=== PATIENT | female | born 1995 | race Asian ===

== ENCOUNTER 2021-05-01 09:24 | Emergency (ER) | payer OTHER, SELFPAY ==
[2021-05-01 09:25] VITALS: BP 117/69; PULSE 105; RESP 16; TEMP 36.7; O2SAT 99
--- NOTE | 2021-05-01 09:39 | ED_ITS ---
HPI - Skin/Abscess/Foreign Bdy General Chief complaint: Skin/Abscess/Foreign Body Stated complaint: Staph infection back after antibiotics Time Seen by Provider: 05/01/21 09:34 Source: patient Mode of arrival: Ambulatory Limitations: no limitations History of Present Illness HPI narrative: The patient is a 25-year-old female who presents with in left axilla region. It has been for about 2-4 weeks. She says about 2 to have years ago she did have a staph infection in was cleared with clindamycin. She has not had any issue until recently. It again presented eye she initially was started on Bactrim she said the 1st 3 days of Bactrim cleared however came back on day 4 and was no longer responding at which point she was switched to clindamycin. She finished a 10 day course of clindamycin her last day was 4 days ago she had some weeping up the area and had a culture taken 3 days ago, which I do not have access to. She was told to start antifungal low Motrin cream she put that on last night and this morning she said it has come back with a vengeance. Significantly more red itchy it is weeping draining she says that she woke up with her sheets wet. She has not had fever chills or rigors. She did get a small cold in the middle of this she had 3- COVID test. She no longer has any upper respiratory symptoms. He says it is uncomfortable. No significant swelling. sHe actually has infectious disease appointment in 4 days. Related Data Home Medications Medication Instructions Recorded Confirmed No Known Home Medications 05/01/21 05/01/21 Allergies Allergy/AdvReac Type Severity Reaction Status Date / Time Penicillins Allergy Unknown Verified 05/01/21 09:37 Review of Systems Review of Systems Narrative: GENERAL: Denies chills, fatigue, malaise, fever, sweats, travel HEENT: Denies sinus pain, ear pain, sore throat, difficulty swallowing, neck pain RESPIRATORY: Denies dyspnea, cough, wheezing, hemoptysis, sputum. CARDIOVASCULAR: Denies chest pain, palpitations, orthopnea, edema GASTROINTESTINAL: Denies nausea, vomiting, abdominal pain, diarrhea, constipation, melena. : Denies dysuria, frequency, incontinence, hematuria, urinary retention, flank pain. MUSCULOSKELETAL: Denies weakness, joint pain, or bony pain SKIN: See HPI NEUROLOGIC: Denies weakness, dizziness, headache, numbness, change in speech, confusion PSYCHIATRIC: No concerning psychosocial issues. 12 point review of systems is negative except for those stated above and HPI Patient History Medical History Staph infection Social History Smoking Status: Never smoker Smoking Status: Never smoker alcohol intake frequency: 0-2 drinks per day Substance Use Type: does not use Exam Initial Vital Signs Initial Vital Signs: Vital Signs Temperature 98.1 F 05/01/21 09:25 Pulse Rate 105 H 05/01/21 09:25 Respiratory Rate 16 05/01/21 09:25 Blood Pressure 117/69 05/01/21 09:25 Pulse Oximetry 99 05/01/21 09:25 GENERAL: Well-appearing, well-nourished and in no acute distress. CARDIOVASCULAR: peripheral pulses in tact, cap refill <2 sec RESPIRATORY: No respiratory distress, speaks in full sentences without difficulty EXTREMITIES: Normal range of motion, no clubbing or edema. Neurovascularly intact NEUROLOGICAL: Cranial nerves II through XII grossly intact. Normal gait and speech. SKIN: Left axilla erythematous no fluctuation, not blanchable obvious weeping and drainage culture is again taken the are some small cracks some of it is crusted over around the edges Course Orders Ordered: ED Orders 05/01/21 10:05 CBC Auto Diff [Complete Blood Count AUTO DIFF] Stat CMP [Comprehensive Metabolic Panel] Stat CRP [C-Reactive Protein Quant] Stat ESR [Erythrocyte Sedimentation Rate] Stat Lactate (Lactic Acid) Stat Procalcitonin Stat 05/01/21 10:20 Wound Culture and Gram Stain Stat 05/01/21 10:49 Blood Culture Stat Discontinued Medications Methylprednisolone (Methylprednisolone 125 Mg/2 Ml Vial) 125 mg IV NOW ONE Stop: 05/01/21 11:06 Last Admin: 05/01/21 11:45 Dose: Not Given Documented by: AYANA Vital Signs Vital signs: Vital Signs - 8 hr 05/01/21 10:57 05/01/21 12:14 Pulse Rate 78 84 Respiratory Rate 16 18 Blood Pressure 118/78 105/64 Pulse Oximetry 99 100 MDM - Skin/Abscess/Foreign Bdy Lab Data Result diagrams: 05/01/21 10:05 05/01/21 10:05 Labs: Lab Results 05/01/21 05/01/21 05/01/21 Range/Units 10:05 10:05 10:05 WBC 11.7 H (4.5-11.0) X10^3/uL RBC 4.54 (4.0-5.2) X10^6/uL Hgb 13.9 (12.0-16.0) g/dL Hct 41.1 (36-46) % MCV 90.4 (80-100) fL MCH 30.7 (26-34) PG MCHC 34.0 (30-36) % RDW 12.8 (11.6-14.8) % Plt Count 351 (150-400) X10^3/uL Neut % (Auto) 85.6 H (50-75) % Lymph % (Auto) 9.1 L (25-40) % [place] % (Auto) 4.7 (3-14) % Eos % (Auto) 0.3 L (2-4) % Baso % (Auto) 0.3 (0-2) % Neut # (Auto) 91073 H (5558-9788) /uL Lymph # (Auto) 1100 (7781-5024) /uL [place] # (Auto) 500 (0-900) /uL Eos # (Auto) 0 (0-450) /uL Baso # (Auto) 0 (0-100) /uL ESR 6 (0-20) MM/HR Sodium 139 (137-145) mmol/L Potassium 3.8 (3.4-5.1) mmol/L Chloride 107 (98-107) mmol/L Carbon Dioxide 31 (22-32) mmol/L BUN 14 (7-17) mg/dL Creatinine 0.59 (0.52-1.04) mg/dL Estimated GFR > 60.0 (>60) mL/min BUN/Creatinine Ratio 23.7 H (6-22) Glucose 98 (70-100) mg/dL Lactate 0.7 (0.7-2.1) mmol/L Calcium 9.4 (8.4-10.2) mg/dL Total Bilirubin 0.4 (0.2-1.3) mg/dL AST 27 (14-36) IU/L ALT 12 (<35) IU/L Alkaline Phosphatase 34 L (38-126) U/L C-Reactive Protein < 0.5 (<1.0) mg/dL Total Protein 6.9 (6.3-8.2) g/dL Albumin 4.4 (3.5-5.0) g/dL Globulin 2.5 (1.7-4.1) g/dL Albumin/Globulin Ratio 1.8 (1.0-2.8) Procalcitonin 0.04 (<0.5) ng/mL MDM Narrative Medical decision making narrative: While in the emergency department patient got a text with her wound culture which does show moderate Staphylococcus aureus growth. No sensitivity yet. She has been re-cultured today long blood work. Blood work is overall reassuring. Her physical exam is also reassuring. There are no signs of sepsis at this time. Long discussion with her about starting antibiotics at this time versus waiting for culture and sensitivity. She will need further antibiotics however since she has already been on Bactrim and clindamycin recommend waiting for sensitivity. At this time we agree to monitor rash if it is worsening she needs to return to emergency department Discharge Plan Departure Patient Disposition: Home Clinical Impression: Cellulitis Instructions: DI for Cellulitis -- Adult Activity Restrictions/Additional Instructions: *You have been diagnosed with cellulitis *What to do: At this time as discussed we agreed to wait on antibiotics until culture and sensitivity returns from either wound culture. Please monitor very closely for any worsening redness. If the redness is worsening or your having worsening symptoms return to emergency department. At this time her blood work is overall reassuring *Continue to take medications as directed *Follow up with your primary care provider in 2-3 days or call [phone] *Return to ER if you should have fever greater than 100.4, worsening redness, pain or any new, worsening or concerning symptoms Prescriptions: No Action No Known Home Medications 0RF
[2021-05-01 10:24] LABS: Add Manual Diff / Slide Review NO; Basophils Absolute Auto 0 /uL (0-100); Basophils Percent Auto 0.3 % (0-2); Eosinophils Absolute Auto 0 /uL (0-450); Eosinophils Percent Auto 0.3 % (2-4); Hematocrit 41.1 % (36-46); Hemoglobin 13.9 g/dL (12.0-16.0); Lymphocytes Absolute Auto 1100 /uL (1100-4500); Lymphocytes Percent Auto 9.1 % (25-40); Mean Corpuscular Hemoglobin 30.7 PG (26-34); Mean Corpuscular Volume 90.4 fL (80-100); Monocytes Absolute Auto 500 /uL (0-900); Monocytes Percent Auto 4.7 % (3-14); Neutrophils Absolute Auto 10000 /uL (1500-7000); Neutrophils Percent Auto 85.6 % (50-75); Platelet Count 351 X10^3/uL (150-400); Red Blood Cell Count 4.54 X10^6/uL (4.0-5.2); Red Cell Distribution Width 12.8 % (11.6-14.8); White Blood Cell Count 11.7 X10^3/uL (4.5-11.0)
[2021-05-01 10:37] LABS: Lactate (Lactic Acid) 0.7 mmol/L (0.7-2.1)
[2021-05-01 10:39] LABS: Erythrocyte Sedimentation Rate 6 MM/HR (0-20)
[2021-05-01 10:41] LABS: Alanine Aminotransferase 12 IU/L (<35); Albumin 4.4 g/dL (3.5-5.0); Albumin Globulin Ratio 1.8 (1.0-2.8); Alkaline Phosphatase 34 U/L (38-126); Aspartate Aminotransferase 27 IU/L (14-36); BUN Creatinine Ratio 23.7 (6-22); Bilirubin Total 0.4 mg/dL (0.2-1.3); Blood Urea Nitrogen 14 mg/dL (7-17); C-Reactive Protein Quant < 0.5 mg/dL (<1.0); Calcium 9.4 mg/dL (8.4-10.2); Carbon Dioxide 31 mmol/L (22-32); Chloride 107 mmol/L (98-107); Estimated Glomerular Filt Rate > 60.0 mL/min (>60); Globulin 2.5 g/dL (1.7-4.1); Glucose 98 mg/dL (70-100); HEMOLYSIS < 15 (0-50); Potassium 3.8 mmol/L (3.4-5.1); Sodium 139 mmol/L (137-145); Total Protein 6.9 g/dL (6.3-8.2)
[2021-05-01 10:53] LABS: Procalcitonin 0.04 ng/mL (<0.5)
[2021-05-01 10:57] VITALS: BP 118/78; PULSE 78; RESP 16; O2SAT 99
--- NOTE | 2021-05-01 10:57 | PC.NURSE ---
attempted to obtain culture from Monday. Pt states she see's a [employer]LECT[employer] under the radar and was going to call her for results.
[2021-05-01 12:14] VITALS: BP 105/64; PULSE 84; RESP 18; O2SAT 100
== END 2021-05-01 12:20 | disposition home or self-care (01) ==
PROVIDERS: Emergency Provider Emergency Medicine
DX: L03.112 Cellulitis of left axilla (principal); B95.7 Other staphylococcus as the cause of diseases classified elsewhere; Z16.29 Resistance to other single specified antibiotic; Z88.0 Allergy status to penicillin
CPT/HCPCS: 36415; 80053; 83605; 84145; 85025; 85651; 86140; 87040; 87070; 87075; 87077; 87185; 87186; 87205; 99283; 99284